=== PATIENT | female | born 1960 | race Caucasian/White ===

== ENCOUNTER 2017-07-02 09:43 | Emergency (ER) | payer MEDICARE, MEDICAID ==
[2017-07-02] MEDS ORDERED: Ketorolac 60 MG/2 ML SDV IM ONE (10:05)
--- NOTE | 2017-07-02 10:07 | EDM.PDOC ---
ED HPI GENERAL MEDICAL PROBLEM - General Chief Complaint: Lower Extremity Injury/Pain Stated Complaint: Chronic Left Hip pain Time Seen by Provider: 07/02/17 09:50 Source of Information: Reports: Patient, Old Records, RN, RN Notes Reviewed History Limitations: Reports: No Limitations - History of Present Illness INITIAL COMMENTS - FREE TEXT/NARRATIVE: Patient presents to the emergency room at [facility] in [place] complaining of acute on chronic left hip pain. The patient is somewhat of a poor historian as she seems to be having word finding problems as well as expressing the chronology of her left hip pain. The patient appears to be acting very excitable and speaking of multiple different situations that do not seem to have anything to do with her left hip. The patient is here requesting IM injections for her left hip pain. The patient was under the understanding she can get a cortisone injection in the emergency room, which unfortunately we do not provide in this facility. The patient seemed to become more agitated and excited that she would not be able to get a cortisone injection. The patient states that she has been seen multiple times in different emergency rooms for her left hip pain. Patient was seen in the [facility] ED on 06/26 and 06/17 presenting with the same issues and requesting pain medication. She was given Toradol and Norflex at both those visits. The patient currently resides in [facility] where she sees her primary care provider. The patient states that she travels to [facility] to see a pain specialist for her cortisone injections. The patient states she is in our area because her mother is ill in this hospital. The patient states that she has had to cancel her pain clinic appointments because she is not able to attend them due to her mother's illness. The patient states that she was seen yesterday at [facility] clinic where she received a IM injection of Toradol. The patient states that she was upset that she was not able to get a Norflex injection during her clinic visit. The clinic does not carry this medication. Onset: Other (chronic) Duration: Chronic Location: Reports: Lower Extremity, Left Quality: Reports: Sharp, Stabbing, Throbbing Severity: Severe Improves with: Reports: Rest Worsens with: Reports: Movement Associated Symptoms: Reports: No Other Symptoms - Related Data Allergies Allergy/AdvReac Type Severity Reaction Status Date / Time amlodipine Allergy Nausea Verified 06/17/17 20:30 duloxetine HCl Allergy Diarrhea Verified 06/17/17 20:30 [From Cymbalta] gabapentin Allergy Disorientat Verified 06/17/17 20:30 ion pregabalin [From Lyrica] Allergy Diarrhea Verified 06/17/17 20:30 sumatriptan [From Imitrex] Allergy Respiratory Verified 06/17/17 20:30 Distress sumatriptan succinate Allergy Difficulty Verified 06/17/17 20:30 [From Imitrex] Breathing Home Meds: Home Meds Lisinopril/Hydrochlorothiazide [Lisinopril-Hctz 20-12.5 mg Tab] 1 tab PO BEDTIME 07/20/13 [History] Tiotropium [Spiriva Handihaler] 2 puff PO DAILY PRN 07/20/13 [History] Metoprolol Succinate [Toprol XL] 50 mg PO DAILY 04/07/14 [History] Dicyclomine [Bentyl] 20 mg PO ASDIRECTED PRN 04/10/14 [History] Fluticasone Propionate [Flonase] 2 sprays INH DAILY 04/10/14 [History] Acetaminophen [Tylenol Arthritis] 650 mg PO TID 12/17/16 [History] Cyclobenzaprine [Flexeril] 10 mg PO BID 12/17/16 [History] Ibuprofen 1 tab PO TID PRN 12/17/16 [History] Omeprazole 20 mg PO DAILY 12/17/16 [History] hydrOXYzine HCl [Atarax] 25 mg PO TID PRN 02/06/17 [History] Albuterol [Proair HFA] 2 puff INH ASDIRECTED PRN 06/26/17 [History] Past Medical History HEENT History: Reports: Allergic Rhinitis, Impaired Vision Cardiovascular History: Reports: Heart Murmur, High Cholesterol, Hypertension Respiratory History: Reports: Asthma, COPD Gastrointestinal History: Reports: Bowel Obstruction, Cholelithiasis, GERD, Irritable Bowel Syndrome Other Gastrointestinal History: Irritable Bowel Syndrome 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 History: Reports: Musculoskeletal History: Reports: Arthritis, Fibromyalgia Neurological History: Reports: CVA, Migraines, Seizure Psychiatric History: Reports: Addiction, Anxiety, Depression Endocrine/Metabolic History: Reports: Obesity/BMI 30+ - Past Surgical History Female Surgical History: Reports: Hysterectomy Social & Family History - Family History Family Medical History: Noncontributory - Tobacco Use Smoking Status *Q: Current Every Day Smoker Years of Tobacco use: 25 Packs/Tins Daily: 1 Used Tobacco, but Quit: No Second Hand Smoke Exposure: Yes - Caffeine Use Caffeine Use: Reports: Coffee - Alcohol Use Days Per Week of Alcohol Use: 2 Number of Drinks Per Day: 6 Total Drinks Per Week: 12 - Recreational Drug Use Recreational Drug Use: Yes Drug Use in Last 12 Months: Yes Recreational Drug Type: Reports: Marijuana/Hashish Recreational Drug Use Frequency: Daily - Living Situation & Occupation Living situation: Reports: Single, with Significant Other Occupation: Disabled ED ROS GENERAL - Review of Systems Review Of Systems: See Below Constitutional: Denies: Fever, Chills, Weakness Respiratory: Denies: Shortness of Breath, Cough Cardiovascular: Denies: Chest Pain, Palpitations GI/Abdominal: Denies: Abdominal Pain, Nausea, Vomiting Musculoskeletal: Reports: Joint Pain (Left hip) Skin: Reports: No Symptoms Neurological: Denies: Numbness, Paresthesia, Tingling ED EXAM, GENERAL - Physical Exam Exam: See Below Exam Limited By: No Limitations General Appearance: Alert, No Apparent Distress, Obese Respiratory/Chest: No Respiratory Distress, Lungs Clear, Normal Breath Sounds Cardiovascular: Normal Peripheral Pulses, Regular Rate, Rhythm Peripheral Pulses: 2+: Posterior Tibial (L), Posterior Tibial (R), Dorsalis Pedis (L), Dorsalis Pedis (R) GI/Abdominal: Normal Bowel Sounds, Soft, Non-Tender Back Exam: Normal Inspection Extremities: Normal Inspection, Normal Capillary Refill, Limited Range of Motion (due to left hip pain) Neurological: Alert, Oriented Psychiatric: Anxious, Tearful Skin Exam: Warm, Dry, Intact, Normal Color Course - Orders/Labs/Meds Meds: Medications Discontinued Medications Generic Name Dose Route Start Last Admin Trade Name Freq PRN Reason Stop Dose Admin Ketorolac Tromethamine 60 mg 07/02/17 10:05 Toradol IM 07/02/17 10:06 ONETIME ONE Orphenadrine Citrate 60 mg 07/02/17 10:05 Norflex IM 07/02/17 10:06 Q12H ONE Departure - Departure Time of Disposition: 10:17 Disposition: Home, Self-Care 01 Condition: Fair Clinical Impression: Chronic left hip pain - Discharge Information Instructions: Hip Pain, Ketorolac injection, Orphenadrine injection, Joint Pain Forms: ED Department Discharge Additional Instructions: 1. Stay well hydrated and rest 2. Moving and getting up may hurt, but it is good for your body to do some form of exercise 3. Drink lots of water 4. Recommending calling or getting in touch with your Primary and let her know you are out of town 5. See your Primary as symptoms warrant - Problem List Review Problem List Initiated/Reviewed/Updated: Yes - Assessment/Plan Assessment:: Acute on chronic left hip pain Plan: Patient given 60 mg IM Toradol and 60 mg IM Norflex. Recommend she follow up or at least call her Primary to discuss her treatment options while she is out of town. Discussed HEP, heat, ice, etc., which patient was not interested in learning about.
[2017-07-02 11:10] VITALS: BP 128/91
== END 2017-07-02 11:05 | disposition home or self-care (01) ==
LOC: VM.ED 09:43
DX: G89.29 Other chronic pain (principal); M25.552 Pain in left hip; E78.00 Pure hypercholesterolemia, unspecified; I10 Essential (primary) hypertension; J45.909 Unspecified asthma, uncomplicated; F17.210 Nicotine dependence, cigarettes, uncomplicated; Z88.8 Allergy status to other drugs, medicaments and biological substances; Z79.899 Other long term (current) drug therapy
CPT/HCPCS: 96372; 99283; J1885; J2360

== ENCOUNTER 2017-10-26 19:36 | Emergency (ER) | payer MEDICARE, MEDICAID ==
[2017-10-26] MEDS ORDERED: Sodium Chloride 0.9% 10 ML Syringe FLUSH PRN (20:03)
[2017-10-26] MEDS ORDERED: Diltiazem 25 MG/5 ML SDV IVPUSH ONE (20:05)
[2017-10-26 20:52] LABS: ANION GAP 14.4 mmol/L (10-20)
[2017-10-26 20:54] VITALS: BP 130/72
--- NOTE | 2017-10-27 18:31 | EDM.PDOC ---
ED HPI GENERAL MEDICAL PROBLEM - General Chief Complaint: Chest Pain Time Seen by Provider: 10/26/17 20:08 Source of Information: Reports: Patient History Limitations: Reports: No Limitations - History of Present Illness INITIAL COMMENTS - FREE TEXT/NARRATIVE: Pt. presents to ER with complaints of palpitations. She also complains of acute on chronic neck/R upper extremity pain that she attributes to cervical spinal stenosis. She denies any chest pain or shortness of breath. States that she did meth 2 days ago, has not been sleeping, and has been stressed dealing with her sick mother. She denies any back or jaw pain. No peripheral edema. No nausea, vomiting, or diarrhea. Onset: Today Onset Date: 10/26/17 Location: Reports: Upper Extremity, Right, Generalized Quality: Reports: Ache, Burning Severity: Moderate Improves with: Reports: Rest - Related Data Allergies Allergy/AdvReac Type Severity Reaction Status Date / Time sumatriptan [From Imitrex] Allergy Respiratory Verified 10/26/17 20:04 Distress sumatriptan succinate Allergy Difficulty Verified 10/26/17 20:04 [From Imitrex] Breathing amlodipine AdvReac Nausea Verified 10/26/17 20:04 duloxetine HCl AdvReac Diarrhea Verified 10/26/17 20:04 [From Cymbalta] gabapentin AdvReac Disorientat Verified 10/26/17 20:04 ion pregabalin [From Lyrica] AdvReac Diarrhea Verified 10/26/17 20:04 Home Meds: Home Meds Lisinopril/Hydrochlorothiazide [Lisinopril-Hctz 20-12.5 mg Tab] 1 tab PO BEDTIME 07/20/13 [History] Tiotropium [Spiriva Handihaler] 2 puff PO DAILY PRN 07/20/13 [History] Metoprolol Succinate [Toprol XL] 50 mg PO DAILY 04/07/14 [History] Dicyclomine [Bentyl] 20 mg PO ASDIRECTED PRN 04/10/14 [History] Fluticasone Propionate [Flonase] 2 sprays INH DAILY 04/10/14 [History] Acetaminophen [Tylenol Arthritis] 650 mg PO TID 12/17/16 [History] Cyclobenzaprine [Flexeril] 10 mg PO BID 12/17/16 [History] Ibuprofen 1 tab PO TID PRN 12/17/16 [History] Omeprazole 20 mg PO DAILY 12/17/16 [History] hydrOXYzine HCl [Atarax] 25 mg PO TID PRN 02/06/17 [History] Albuterol [Proair HFA] 2 puff INH ASDIRECTED PRN 06/26/17 [History] Past Medical History HEENT History: Reports: Allergic Rhinitis, Impaired Vision Cardiovascular History: Reports: Heart Murmur, High Cholesterol, Hypertension Respiratory History: Reports: Asthma, COPD Gastrointestinal History: Reports: Bowel Obstruction, Cholelithiasis, GERD, Irritable Bowel Syndrome Other Gastrointestinal History: Irritable Bowel Syndrome 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: Reports: Musculoskeletal History: Reports: Arthritis, Fibromyalgia Other Musculoskeletal History: chronic hip pain Neurological History: Reports: CVA, Migraines, Seizure Psychiatric History: Reports: Addiction, Anxiety, Depression Other Psychiatric History: cutter Endocrine/Metabolic History: Reports: Obesity/BMI 30+ - Past Surgical History Female Surgical History: Reports: Hysterectomy Social & Family History - Family History Family Medical History: Noncontributory - Tobacco Use Smoking Status *Q: Current Every Day Smoker Years of Tobacco use: 40 Packs/Tins Daily: 0.5 - Caffeine Use Caffeine Use: Reports: Coffee - Recreational Drug Use Recreational Drug Use: Yes Recreational Drug Type: Reports: Marijuana/Hashish, Methamphetamine - Living Situation & Occupation Living situation: Reports: Single, with Significant Other Occupation: Disabled ED ROS GENERAL - Review of Systems Review Of Systems: See Below Constitutional: Reports: No Symptoms HEENT: Reports: No Symptoms Respiratory: Reports: No Symptoms Cardiovascular: Reports: Palpitations Endocrine: Reports: No Symptoms GI/Abdominal: Reports: No Symptoms : Reports: No Symptoms Musculoskeletal: Reports: Arm Pain Skin: Reports: No Symptoms Neurological: Reports: No Symptoms ED EXAM, GENERAL - Physical Exam Exam: See Below Exam Limited By: No Limitations General Appearance: Alert, WD/WN, No Apparent Distress Eye Exam: Bilateral Eye: EOMI, Normal Fundi, Normal Inspection, PERRL Ears: Normal External Exam, Normal Canal, Hearing Grossly Normal, Normal TMs Ear Exam: Bilateral Ear: Auricle Normal, Canal Normal, TM normal Nose: Normal Inspection, Normal Mucosa, No Blood Throat/Mouth: Normal Inspection, Normal Lips, Normal Teeth, Normal Gums, Normal Oropharynx, Normal Voice, No Airway Compromise Head: Atraumatic, Normocephalic Neck: Normal Inspection, Supple, Non-Tender, Full Range of Motion Respiratory/Chest: No Respiratory Distress, Lungs Clear, Normal Breath Sounds, No Accessory Muscle Use, Chest Non-Tender Cardiovascular: No Edema, No JVD, Systolic Murmur, Irregularly Irregular. No: JVD Peripheral Pulses: 3+: Radial (L), Radial (R) GI/Abdominal: Normal Bowel Sounds, Soft, Non-Tender, No Organomegaly, No Distention, No Abnormal Bruit, No Mass (Female) Exam: Deferred Rectal (Female) Exam: Deferred Back Exam: Normal Inspection, Full Range of Motion, NT Extremities: Normal Inspection, Normal Range of Motion, Non-Tender, No Pedal Edema, Normal Capillary Refill Neurological: Alert, Oriented, CN II-XII Intact, Normal Cognition, Normal Gait, Normal Reflexes, No Motor/Sensory Deficits Psychiatric: Normal Affect, Normal Mood Skin Exam: Warm, Dry, Intact, Normal Color, No Rash Lymphatic: No Adenopathy EKG INTERPRETATION Rhythm: A-Fib EKG Interpretation Comments: Converted to NSR after cardizem 25mg IV Course - Vital Signs Last Recorded V/S: Last Vital Signs Temp 36.0 C 10/26/17 20:05 Pulse 61 10/26/17 20:53 Resp 16 10/26/17 20:53 BP 130/72 10/26/17 20:53 Pulse Ox 91 L 10/26/17 20:53 - Orders/Labs/Meds Orders: Active Orders 24 hr Category Date Time Status EKG Documentation Completion [RC] STAT Care 10/26/17 20:03 Active Chest 1V Frontal [CR] Stat Exams 10/26/17 20:04 Taken Peripheral IV Insertion Adult [OM.PC] Routine Oth 10/26/17 20:03 Ordered Labs: Laboratory Tests 10/26/17 10/26/17 10/26/17 Range/Units 20:00 20:00 20:00 WBC 6.6 (4.0-10.0) x10^3/uL RBC 4.59 (4.00-5.50) x10^6/uL Hgb 15.2 (12.0-16.0) g/dL Hct 43.3 (33.0-47.0) % MCV 94.3 H (78.0-93.0) fL MCH 33.1 H (26.0-32.0) pg MCHC 35.1 (32.0-36.0) g/dL RDW Coeff of Den 12.5 (10.0-15.0) % Plt Count 174 (130-400) x10^3/uL Neut % (Auto) 60.7 (50.0-80.0) % Lymph % (Auto) 31.8 (25.0-50.0) % Raw[place]ins % (Auto) 5.6 (2.0-11.0) % Eos % (Auto) 1.7 (0.0-4.0) % Baso % (Auto) 0.2 (0.2-1.2) % PT 11.9 H (9.6-11.4) SEC INR 1.1 L (2.0-3.5) Sodium 142 (136-145) mmol/L Potassium 3.4 L (3.5-5.1) mmol/L Chloride 105 (98-107) mmol/L Carbon Dioxide 26 (21-32) mmol/L Anion Gap 14.4 (10-20) mmol/L BUN 16 (7-18) mg/dL Creatinine 1.1 H (0.55-1.02) mg/dL Est Cr Clr Drug Dosing 45.17 mL/min Estimated GFR (MDRD) 51 Glucose 114 H (74-106) mg/dL Calcium 8.9 (8.5-10.1) mg/dL Corrected Calcium 9.22 (8.5-10.1) mg/dL Phosphorus 3.6 (2.6-4.7) mg/dL Magnesium 1.8 (1.8-2.4) mg/dL Total Bilirubin 0.3 (0.2-1.0) mg/dL AST 19 (15-37) U/L ALT 18 (14-59) U/L Alkaline Phosphatase 70 (46-116) U/L POC Troponin I (0.00-0.08) ng/mL C-Reactive Protein 0.9 (<=0.9) mg/dL NT-Pro-B Natriuret Pep 1384 H (<=125) pg/mL Total Protein 7.4 (6.4-8.2) g/dL Albumin 3.6 (3.4-5.0) g/dL Globulin 3.8 Albumin/Globulin Ratio 0.95 TSH, Ultra Sensitive 1.407 (0.358-3.74) uIU/mL Urine Opiates Screen (NEGATIVE) Ur Buprenorphine Scrn (NEGATIVE) Ur Oxycodone Screen (NEGATIVE) Urine Methadone Screen (NEGATIVE) Ur Barbiturates Screen (NEGATIVE) Ur Tricyclics Screen (NEGATIVE) Ur Amphetamine Screen (NEGATIVE) U Methamphetamines Scrn (NEGATIVE) Urine MDMA Screen (NEGATIVE) U Benzodiazepines Scrn (NEGATIVE) U Cocaine Metab Screen (NEGATIVE) U Marijuana (THC) Screen (NEGATIVE) 10/26/17 10/26/17 Range/Units 20:10 20:45 WBC (4.0-10.0) x10^3/uL RBC (4.00-5.50) x10^6/uL Hgb (12.0-16.0) g/dL Hct (33.0-47.0) % MCV (78.0-93.0) fL MCH (26.0-32.0) pg MCHC (32.0-36.0) g/dL RDW Coeff of Den (10.0-15.0) % Plt Count (130-400) x10^3/uL Neut % (Auto) (50.0-80.0) % Lymph % (Auto) (25.0-50.0) % [place] % (Auto) (2.0-11.0) % Eos % (Auto) (0.0-4.0) % Baso % (Auto) (0.2-1.2) % PT (9.6-11.4) SEC INR (2.0-3.5) Sodium (136-145) mmol/L Potassium (3.5-5.1) mmol/L Chloride (98-107) mmol/L Carbon Dioxide (21-32) mmol/L Anion Gap (10-20) mmol/L BUN (7-18) mg/dL Creatinine (0.55-1.02) mg/dL Est Cr Clr Drug Dosing mL/min Estimated GFR (MDRD) Glucose (74-106) mg/dL Calcium (8.5-10.1) mg/dL Corrected Calcium (8.5-10.1) mg/dL Phosphorus (2.6-4.7) mg/dL Magnesium (1.8-2.4) mg/dL Total Bilirubin (0.2-1.0) mg/dL AST (15-37) U/L ALT (14-59) U/L Alkaline Phosphatase (46-116) U/L POC Troponin I 0.01 (0.00-0.08) ng/mL C-Reactive Protein (<=0.9) mg/dL NT-Pro-B Natriuret Pep (<=125) pg/mL Total Protein (6.4-8.2) g/dL Albumin (3.4-5.0) g/dL Globulin Albumin/Globulin Ratio TSH, Ultra Sensitive (0.358-3.74) uIU/mL Urine Opiates Screen Negative (NEGATIVE) Ur Buprenorphine Scrn Negative (NEGATIVE) Ur Oxycodone Screen Negative (NEGATIVE) Urine Methadone Screen Negative (NEGATIVE) Ur Barbiturates Screen Negative (NEGATIVE) Ur Tricyclics Screen Negative (NEGATIVE) Ur Amphetamine Screen Positive H (NEGATIVE) U Methamphetamines Scrn Positive H (NEGATIVE) Urine MDMA Screen Negative (NEGATIVE) U Benzodiazepines Scrn Negative (NEGATIVE) U Cocaine Metab Screen Negative (NEGATIVE) U Marijuana (THC) Screen Positive H (NEGATIVE) Meds: Medications Discontinued Medications Generic Name Dose Route Start Last Admin Trade Name Freq PRN Reason Stop Dose Admin Diltiazem HCl 25 mg 10/26/17 20:05 10/26/17 20:09 Diltiazem IVPUSH 10/26/17 20:06 25 mg ONETIME ONE Administration Sodium Chloride 10 ml 10/26/17 20:03 10/26/17 20:10 Saline Flush FLUSH 10 ml ASDIRECTED PRN Administration Keep Vein Open - Radiology Interpretation Free Text/Narrative:: CXR is negative Departure - Departure Time of Disposition: 21:16 Disposition: Home, Self-Care 01 Condition: Good Clinical Impression: Atrial fibrillation with RVR - Discharge Information Instructions: Atrial Fibrillation, [id number] Referrals: PCP,Unknown [Primary Care Provider] - Forms: ED Department Discharge Additional Instructions: Return to ER if you have recurrence of the racing of your heart, chest pain, or shortness of breath. Refrain from drug use and drinking. Follow-up with your PCP when you get back to [place]. - My Orders Last 24 Hours: My Active Orders 10/26/17 20:03 EKG Documentation Completion [RC] STAT Peripheral IV Insertion Adult [OM.PC] Routine 10/26/17 20:04 Chest 1V Frontal [CR] Stat - Assessment/Plan Last 24 Hours: My Active Orders 10/26/17 20:03 EKG Documentation Completion [RC] STAT Peripheral IV Insertion Adult [OM.PC] Routine 10/26/17 20:04 Chest 1V Frontal [CR] Stat Plan: Pt. refused admission. Discussed case with Dr. Wilson. Return to ER if you have recurrence of the racing of your heart, chest pain, or shortness of breath. Refrain from drug use and drinking. Follow-up with your PCP when you get back to [place].
== END 2017-10-26 21:23 | disposition home or self-care (01) ==
LOC: VM.ED 19:36
DX: I48.91 Unspecified atrial fibrillation (principal); I10 Essential (primary) hypertension; E66.9 Obesity, unspecified; F17.210 Nicotine dependence, cigarettes, uncomplicated; Z88.8 Allergy status to other drugs, medicaments and biological substances; Z79.899 Other long term (current) drug therapy
CPT/HCPCS: 71045; 80053; 80305; 83735; 83880; 84100; 84443; 84484; 85025; 85610; 86140; 93005; 96374; 99285; J3490; J7050; 99284-GF

== ENCOUNTER 2018-11-08 12:48 | Emergency (ER) | payer MEDICARE, MEDICAID ==
[2018-11-08 13:56] VITALS: BP 156/82
--- NOTE | 2018-11-08 14:00 | CR ---
[id number] RAD/RAD Chest PA And Lateral EXAM: FRONTAL AND LATERAL CHEST INDICATION: Cough and chest congestion. COMPARISON: October 26, 2017. DISCUSSION: Hyperinflation is compatible with chronic obstructive pulmonary disease. Mild bibasilar atelectasis and possible minor right lower lobe infiltrates best seen on the lateral view of the costophrenic angle. Mild cardiomegaly without evidence of congestive heart failure. Chronic right clavicle and left rib fractures. IMPRESSION: 1. Mild bibasilar atelectasis and possible early posterior basal right lower lobe infiltrates. Nathanael Kramer MD 11/08/18 2936 Thank you for allowing us to participate in the care of your patient.
[2018-11-08] MEDS ORDERED: cefTRIAXone 2 GM Vial IM ONE (14:04)
[2018-11-08] MEDS ORDERED: methylPREDNISolone Sodium Succinate 125 MG/2 ML SDV IM ONE (14:04)
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
== END 2018-11-08 14:30 | disposition home or self-care (01) ==
LOC: VM.ED 12:48
DX: J44.1 Chronic obstructive pulmonary disease with (acute) exacerbation (principal); J18.9 Pneumonia, unspecified organism; I10 Essential (primary) hypertension; E78.00 Pure hypercholesterolemia, unspecified; Z86.73 Personal history of transient ischemic attack (TIA), and cerebral infarction without residual deficits; Z79.899 Other long term (current) drug therapy; Z91.040 Latex allergy status; Z88.8 Allergy status to other drugs, medicaments and biological substances
CPT/HCPCS: 71046; 96372; 99284-25; J0696; J2001